=== PATIENT | male | born 1965 | race Caucasian/White ===

== ENCOUNTER 2022-08-01 12:54 | Emergency (ER) | payer OTHER, SELFPAY ==
[2022-08-01 13:10] VITALS: BP 149/100; PULSE 86; RESP 20; TEMP 36.8; O2SAT 99
--- NOTE | 2022-08-01 13:13 | ED.URI ---
HPI - URI/Sore Throat General Chief Complaint: Upper Respiratory Infection Stated Complaint: Cold Symptoms Source: patient and RN notes reviewed History of Present Illness HPI Narrative: 56-year-old male who presents urgent care with complaints of persistent and worsening congestion and pressure in his face and head. Patient states the symptoms have been going on for 1 week. Patient reports associated headache. Denies any ear pain, sore throat, chest pain, shortness of breath, or vomiting. Patient has been taking DayQuil and NyQuil at home without relief. Some parts of this dictation were generated by voice recognition software and may contain typographical and/or grammatical inaccuracies. Related Data Home Medications Medication Instructions Recorded Confirmed citalopram 20 mg tablet 20 mg PO DIRECTED 08/01/22 08/01/22 diclofenac sodium 75 mg 75 mg PO DIRECTED 08/01/22 08/01/22 tablet,delayed release Allergies Allergy/AdvReac Type Severity Reaction Status Date / Time No Known Allergies Allergy Verified 08/01/22 13:18 Review of Systems Review of Systems: CONSTITUTIONAL: Denies fever, chills, or sweats. EYES: Denies visual changes, redness, or discharge. ENT: Congestion and facial pressure CARDIOVASCULAR: Denies chest pain, palpitations, or edema. RESPIRATORY: Denies cough or dyspnea. GASTROINTESTINAL: Denies abdominal pain, nausea, vomiting, or diarrhea. GENITOURINARY: Denies dysuria or hematuria. SKIN: Denies rash or itching. MUSCULOSKELETAL: Denies back pain, joint pain, or myalgia. NEUROLOGIC: Headache PMFSH Comments At the time of my signature, I reviewed and agree with the nursing past medical, surgical, social, and family history. There is no relevant family history pertinent to the patient complaint. Exam Narrative: GENERAL: This is a well-nourished, well-developed patient, in no apparent distress. HEAD: normocephalic, atraumatic. EYES: PERRL. Sclera clear/white. Vision is grossly intact. EARS: External ears normal, auditory canals clear and without drainage, TMs normal without perforation. Hearing grossly intact. NOSE: Congestion THROAT: Mucous membranes moist, posterior pharynx clear. NECK: Neck supple, non-tender without lymphadenopathy, masses or thyromegaly. CARDIOVASCULAR: Regular rate RESPIRATORY: No respiratory distress GASTROINTESTINAL: Abdomen soft, non-tender, nondistended. Bowel sounds are active. No hepato-splenomegaly, or palpable masses. No guarding. SKIN: warm, intact with no suspicious lesions or rash, good texture and turgor. NEURO: awake, alert, and oriented to person, place and time. There were no obvious focal neurologic abnormalities. Course Course Level of Care: Express Care Visit Vital Signs Vital signs: Vital Signs Temperature 98.2 F 08/01/22 13:10 Pulse Rate 86 08/01/22 13:10 Respiratory Rate 20 08/01/22 13:10 Blood Pressure 149/100 H 08/01/22 13:10 Pulse Oximetry 99 08/01/22 13:10 Oxygen Delivery Room Air 08/01/22 13:10 Temperature 98.2 F 08/01/22 13:10 Pulse Rate 86 08/01/22 13:10 Respiratory Rate 20 08/01/22 13:10 Blood Pressure 149/100 H 08/01/22 13:10 Pulse Oximetry 99 08/01/22 13:10 Oxygen Delivery Room Air 08/01/22 13:10 Reviewed MDM - URI/Sore Throat MDM Narrative Medical decision making narrative: Return to urgent care or go to the ER for new or worsening symptoms. Avoid smoking/second-hand smoke. Continue to take Tylenol or Motrin for pain. Increase your Vitamin C intake. Use a humidifier or vaporizer at night. Take Medications as prescribed. Drink plenty of water. 8-10 glasses per day. Use flonase 2 times per day for 5 days then as needed Take mucinex 2 times per day and be sure to take with 8oz of water. Follow up with Primary provider if not getting better. Go to the ER for new or worsening symptoms. Differential Diagnosis Differential diagnosis: Likely upper respiratory infecti
== END 2022-08-01 13:50 | disposition home or self-care (01) ==
PROVIDERS: Emergency Provider Nurse Practitioner Family; PCP Family Medicine
DX: J32.0 Chronic maxillary sinusitis (principal)
CPT/HCPCS: 99213; G0463